=== PATIENT | male | born 2000 | race Caucasian/White ===

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

== ENCOUNTER 2019-12-11 17:31 | Emergency (ER) | payer OTHER, SELFPAY | END 2019-12-11 18:22 | disposition home or self-care (01) | LOC: ERS 17:31 | DX: L05.91 Pilonidal cyst without abscess (principal); R03.0 Elevated blood-pressure reading, without diagnosis of hypertension | CPT/HCPCS: 99282 ==

== ENCOUNTER 2020-01-21 17:34 | Emergency (ER) | payer SELFPAY ==
[2020-01-21] MEDS ORDERED: Lidocaine 1% w/Epinephrine 1:100K 20 ML VIAL ONE (18:05)
[2020-01-21] MEDS ORDERED: Bacitracin 1 PK ONE (18:27)
== END 2020-01-21 18:49 | disposition home or self-care (01) ==
LOC: ERS 17:34
DX: S00.252A Superficial foreign body of left eyelid and periocular area, initial encounter (principal); L08.9 Local infection of the skin and subcutaneous tissue, unspecified; W45.8XXA Other foreign body or object entering through skin, initial encounter
CPT/HCPCS: 10060

== ENCOUNTER 2020-03-10 10:42 | Emergency (ER) | payer OTHER, SELFPAY ==
[2020-03-10] MEDS ORDERED: Ketorolac Tromethamine 30 MG/ML VIAL ONE (11:10)
--- NOTE | 2020-03-10 11:41 | RAD ---
Exam: Chest one view HISTORY:Cough. Sore throat. Comparison: None FINDINGS: Cardiac silhouette: Normal Aorta: Unremarkable Pulmonary vessels: Normal Costophrenic angles: Clear LUNGS: No masses or consolidation. Pneumothorax: None Osseous abnormalities: None IMPRESSION: No acute cardiopulmonary process.
[2020-03-10 11:44] LABS: #Lymphocytes 1.2 thou/uL (1.20-3.40); #Monocytes 0.5 thou/uL (0.11-0.59); #Neutrophils 11.9 thou/uL (1.40-6.50); %Basophils 0.2 % (0.0-1.0); %Eosinophils 0.3 % (0.0-10.0); %Lymphocytes 8.9 % (21.0-51.0); %Monocytes 3.9 % (0.0-10.0); %Neutrophils 86.8 % (42.0-75.0); Hemoglobin 17.2 g/dL (14.0-18.0); Mean Corpuscular HGB CONC 35.2 g/dL (32.0-36.0); Mean Corpuscular Hemoglobin 31.4 pg (27.0-31.0); Mean Corpuscular Volume 89.2 fL (78.0-98.0); Mean Platelet Volume 7.2 fL (7.4-10.4); Platelet Count 320 thou/uL (130-400); RBC Distribution Width 11.5 % (11.5-14.5); Red Blood Cell (RBC) Count 5.49 mill/uL (4.70-6.10); White Blood Cell (WBC) Count 13.8 thou/uL (4.8-10.8)
[2020-03-10 12:11] LABS: ALT (SGPT) 42 U/L (8-55); AST (SGOT) 24 U/L (5-34); Albumin 4.6 g/dL (3.5-5.0); Alkaline Phosphatase 67 U/L (40-110); Anion Gap 15 mmol/L (10-20); BUN (Urea Nitrogen) 10 mg/dL (8.9-20.6); Calc. Creatinine Clearance 0 mL/min (70-130); Calcium 9.6 mg/dL (7.8-10.44); Carbon Dioxide 26 mmol/L (22-29); Chloride 99 mmol/L (98-107); Globulin 3.9 g/dL (2.4-3.5); Glucose 90 mg/dL (70-105); Potassium 4.1 mmol/L (3.5-5.1); Protein, Total 8.5 g/dL (6.0-8.3); Sodium 136 mmol/L (136-145)
[2020-03-10 18:28] LABS: SARS-CoV-2 MS2 Positive; SARS-CoV-2 N Gene Negative; SARS-CoV-2 S Gene Negative; SARS-CoV-2 by NAA Not Detected (NotDetected); SARS-CoV-2 orf1ab Negative
--- NOTE | 2020-03-12 14:22 | EKG ---
Test Reason : Blood Pressure : / mmHG Vent. Rate : 115 BPM Atrial Rate : 115 BPM P-R Int : 142 ms QRS Dur : 074 ms QT Int : 306 ms P-R-T Axes : 029 042 013 degrees QTc Int : 423 ms Sinus tachycardia Nonspecific T wave abnormality Abnormal ECG Confirmed by TOMER RUIZ DO ([id number]), managing editor MÓNICA KELLEY ([id number]) on 03/12/2020 2:22:23 PM Referred By: Confirmed By:TOMER RUIZ DO
== END 2020-03-10 14:41 | disposition home or self-care (01) ==
LOC: ERS 10:42
DX: J03.90 Acute tonsillitis, unspecified (principal); Z20.822 Contact with and (suspected) exposure to COVID-19
CPT/HCPCS: 71045; 80053; 85025; 87081; 87430; 87635; 93005; 96374; J1885; U0003; U0005